=== PATIENT | male | born 1960 | race African-American/Black ===

== ENCOUNTER 2017-11-22 23:02 | Emergency (ER) | payer BC ==
[2017-11-22] MEDS ORDERED: Adacel (T-DAP) 0.5 ML VIAL ONE (23:25)
== END 2017-11-22 23:40 | disposition home or self-care (01) ==
LOC: ERS 23:02
DX: S00.01XA Abrasion of scalp, initial encounter (principal); E11.9 Type 2 diabetes mellitus without complications; E78.5 Hyperlipidemia, unspecified; I10 Essential (primary) hypertension; W55.59XA Other contact with raccoon, initial encounter
CPT/HCPCS: 90471; 90715; 99283